=== PATIENT | male | born 1940 | race Caucasian/White ===

== ENCOUNTER 2016-10-15 14:28 | Emergency (ER) | payer MEDICARE ==
[2016-10-15 15:32] VITALS: BP 140/71
[2016-10-15] MEDS ORDERED: Amoxicillin PO (*) 500 MG CAP PO ONE ×3 (17:40)
--- NOTE | 2016-10-15 17:40 | UC ---
[facility] HPI - HPI Summary HPI Summary: Day 2 of worsening left upper dental pain, some swelling - History of Current Complaint Chief Complaint: UCDentalProblem Stated Complaint: TOOTH PAIN Time Seen by Provider: 10/15/16 17:35 Hx Obtained From: Patient Onset/Duration: Sudden Onset, Lasting Days - 2, Still Present Severity: Moderate Related History: Previous Dental Care on Same Tooth - teeth are capped - Allergies/Home Medications Allergies/Adverse Reactions: Allergies Allergy/AdvReac Type Severity Reaction Status Date / Time No Known Allergies Allergy Verified 10/15/16 15:32 PMH/Surg Hx/FS Hx/Imm Hx Previously Healthy: No Endocrine History Of: Denies: Diabetes Cardiovascular History Of: Reports: Cardiac Disorders Denies: Hypertension, Congestive Heart Failure - Surgical History Surgical History: Yes Surgery Procedure, Year, and Place: CATARACT REMOVAL BILATERAL EYES - [facility] - Family History Known Family History: Positive: None Family History: no reported cardiovascular issues in family lineage - Social History Occupation: Retired Lives: With Family Alcohol Use: Occasionally Substance Use Type: None Smoking Status (MU): Never Smoked Tobacco Review of Systems Constitutional: Negative Skin: Negative Eyes: Negative ENT: Dental Pain Respiratory: Negative Cardiovascular: Negative Gastrointestinal: Negative Genitourinary: Negative Motor: Negative Neurovascular: Negative Musculoskeletal: Negative Neurological: Negative Psychological: Negative All Other Systems Reviewed And Are Negative: Yes Physical Exam Triage Information Reviewed: Yes Appearance: Well-Appearing, No Pain Distress, Well-Nourished Vital Signs: Initial Vital Signs Temp 97.6 F 10/15/16 15:26 Pulse 56 10/15/16 15:26 Resp 16 10/15/16 15:26 BP 140/71 10/15/16 15:26 Pulse Ox 99 10/15/16 15:26 Vital Signs Reviewed: Yes Eye Exam: Normal Eyes: Positive: Conjunctiva Clear ENT Exam: Normal ENT: Positive: Normal ENT inspection, Hearing grossly normal, Pharynx normal, TMs normal. Negative: Nasal congestion, Nasal drainage, Tonsillar swelling, Tonsillar exudate, Trismus, Muffled/hoarse voice Dental: Positive: Percussion Tenderness @ - unsure which tooth hurts exactly on left upper side-some swelling observed in cheek Neck exam: Normal Neck: Positive: Supple, Nontender, No Lymphadenopathy Respiratory Exam: Normal Respiratory: Positive: No respiratory distress, No accessory muscle use Cardiovascular Exam: Normal Cardiovascular: Positive: RRR, Brisk Capillary Refill Musculoskeletal Exam: Normal Musculoskeletal: Positive: Strength Intact, ROM Intact, No Edema Neurological Exam: Normal Neurological: Positive: Alert, Muscle Tone Normal Psychological Exam: Normal Psychological: Positive: Normal Response To Family Skin Exam: Normal Dental Complaint Course/Dx - Course Course Of Treatment: Amoxicillin, ibuprofen, follow with dentist on Sunday as planned - Differential Dx/Diagnosis Differential Diagnosis/Dx: Fractured Tooth, Odontogenic Pain, Peridontic Disease , Peritonsillar Abcess Provider Diagnoses: dental abscess Discharge - Discharge Plan Condition: Stable Disposition: HOME Prescriptions: Amoxicillin CAP* 500 mg PO TID #28 cap HYDROcodone/ACETAMIN 5-325 MG* [[place] 5-325 TAB*] 1 tab PO Q6H PRN #10 tab MDD 4 PRN Reason: pain Patient Education Materials: Toothache (ED) Referrals: Kinsey Ren MD [Primary Care Provider] - Additional Instructions: It is ok to take 3 of the 200mg Ibuprofen every 6 hours as needed for pain---be sure to take with a small amount of food to prevent stomach upset- Follow with dentist tomorrow-
[2016-10-15] MEDS ORDERED: HYDROcodone/ACETAMIN 5-325 MG* 1 TAB PO ONE (17:41)
== END 2016-10-15 17:47 | disposition home or self-care (01) ==
LOC: UCEAST 14:28
DX: K04.7 Periapical abscess without sinus (principal)
CPT/HCPCS: 99213; A9270-GY; G0463

== ENCOUNTER → 2017-11-27 10:17 | Day surgery (SDC) | payer MEDICARE ==
[~2017-11-27 10:17] MED LIST: Diazepam TAB(*) 5 MG ONE; Heparin 2 UNITS/ML IVPREMIX* 2,000 ML IV ONE; Heparin(*) 1000 UNIT/ML 10 ML VIAL CATH LAB IV ONE; Iohexol 350 (CONTRAST) 200 ML MDV IV ONE; Lidocaine 1% INJ* 10 MG/ML 30 ML SDV ONE; Midazolam* 1 MG/ML 10 ML VIAL (10 MG) ONE; NS 0.9% 1000 ML* 1,000 ML IV SCH; VERAPAMIL 2.5 MG/ML 2 ML VIAL ** 5 mg/2 ml ONE; diPHENhydraMINE PO* 25 MG ONE; fentaNYL* 50 MCG/ML 2 ML VIAL (100 MCG VIAL) ONE; nitroGLYCERIN DRIP* 25,000 MCG/250 ML BTL ONE
--- NOTE | 2017-11-28 01:34 | CATH ---
CC: Soo Toribio MD; Kinsey Ren MD; Dr. Don Felix * CARDIAC CATHETERIZATION REPORT: DATE OF PROCEDURE: 11/27/17 - [facility] CATH INDICATION FOR THE PROCEDURE: The patient with ventricular tachycardia, on implantable loop recorder, assessed for the presence of coronary artery disease with abnormal EKG changes with exercise stress echo, but normal wall motion. PROCEDURES: Coronary arteriography, left heart catheterization, left ventriculography. PROCEDURE IN DETAIL: The patient was interviewed and examined in the holding area where the risks and benefits were explained. His radial artery was assessed in the holding area under ultrasound guidance and found to be acceptable for an approach. As such, this was determined to be the approach. The patient was brought to the cardiovascular laboratory and prepped and draped in sterile fashion and a formal time-out was performed. The right radial artery area was anesthetized with 1% lidocaine. The right radial artery was cannulated and a 6-Brazilian Glidesheath was placed. Coronary arteriography was performed utilizing a 5-Brazilian 4 curve TIG diagnostic catheter. Left heart catheterization and left ventriculography was performed using a 5-Brazilian PIG Performa radial catheter. Of note, an exchange length Johns guidewire was utilized for all exchanges. Left ventriculography was performed utilizing a total of 24 cc of Omnipaque dye at a rate of 12 cc per second. At the end of the case, the catheter and sheath were removed and hemostasis was obtained with a VascBand. The reverse Barbeau sign was a B at the end of the case. The total contrast used for the case was 70 cc of Omnipaque dye. The radiation exposure included 5.7 minutes of fluoro time. The air kerma radiation was 374 milligray. The DAP radiation was 2312 microgray per meter square. RESULTS: LABORATORY TESTS: Pre-cardiac catheterization laboratory results revealed hemoglobin and hematocrit of 13.8 and 41 with a platelet count of 157,000; BUN and creatinine were 24 and 1.0. INR was 0.86. Sodium was 140, potassium 4.3, chloride 105, bicarb 28. LEFT HEART CATHETERIZATION: Central aortic pressure was recorded at 149/67 with a mean of 100. Left ventricular pressure 148 over left ventricular end diastolic pressure of 14. LEFT VENTRICULOGRAPHY: Performed in the ANTUNEZ projection revealed symmetrical contraction of left ventricle. Of note, bigeminal rhythm was noted. Overall ejection fraction appeared to be approximately 60%. Of note, some of these were post PVC beats. No focal wall motion abnormalities were noted. No significant mitral regurgitation was seen. CORONARY ARTERIOGRAPHY: A. Left coronary artery: 1. Left main - widely patent. 2. Left anterior descending artery. There was calcium seen in the proximal portion of the left anterior descending artery with mild 25% to 30% narrowing at most. The mid segment of the LAD had a 40% narrowing. The LAD supplied a high, small caliber first diagonal branch which had a 25% to 30% proximal narrowing. Following this was a septal electronics technician apprentice followed by a bifurcating mid diagonal branch. The LAD continued onto the apical region and minimally onto the distal inferior wall. 3. Circumflex artery - a dominant vessel supplying a very thin first obtuse marginal branch and a somewhat slightly larger second obtuse marginal branch. The artery continued supplying a moderate sized low-lying obtuse marginal branch and eventually a right ventricular branch and a bifurcating posterior descending artery. There was an area of mild narrowing of 30% to 35% in the distal portion of the vessel prior to the bifurcating posterior descending artery. B. Right coronary artery - a nondominant vessel supplying 2 right ventricular branches, somewhat smaller in caliber, but no significant stenosis was seen. OVERALL ASSESSMENT: Normal LV function with [id number] coronary artery disease as discussed. No lesion of hemodynamic significance was noted. The patient will follow up with me with a wound check in 1 week from now and will follow up with Dr. Toribio following that for ongoing management in addition to Dr. Felix, stopperer assembler from [facility]. [id number]/[facility] #: [id number] CHANCE
--- NOTE | 2017-11-28 11:28 | LTR ---
CC: Dr. Kinsey Ren; Dr. Don Felix * DATE: 11/28/17 - [facility] CATH TO: Dr. Soo Toribio RE: Leonel Morocho : 38 Dear Soo: This is a letter just to review with you Leonel's recent outpatient cardiac catheterization that you had asked me to perform in light of his ventricular tachycardia. As you remember from my text to you, he had mild disease within his proximal LAD with calcium with moderate disease in the mid LAD. His overall LV function was normal as was his left ventricular end diastolic pressure. He had no other significant disease in his other arteries. His circumflex was a left dominant system with a 30% to 35% distal lesion prior to the posterior descending artery. Please feel free to utilize this information in his ongoing cardiac care. Sincerely, [id number]/[facility] #: [id number] MTDVamshi
== END | disposition home or self-care (01) ==
LOC: CHICATH 10:17
PROVIDERS: ATTEND Internal Medicine Cardiovascular Disease
DX: I47.2 Ventricular tachycardia (principal); I25.10 Atherosclerotic heart disease of native coronary artery without angina pectoris; I49.3 Ventricular premature depolarization; R94.39 Abnormal result of other cardiovascular function study; G90.4 Autonomic dysreflexia; Z95.5 Presence of coronary angioplasty implant and graft; G47.33 Obstructive sleep apnea (adult) (pediatric); R55 Syncope and collapse; I35.8 Other nonrheumatic aortic valve disorders; E78.2 Mixed hyperlipidemia; R42 Dizziness and giddiness
CPT/HCPCS: 93458; A9270-GY; J1644; J2250; J3010

== ENCOUNTER 2018-09-02 02:05 | Observation (INO) | payer MEDICARE ==
--- NOTE | 2018-09-02 02:23 | ED ---
HPI Chest Pain - HPI Summary HPI Summary: This patient is a 78 year old M presenting to [facility] accompanied by with a chief complaint of mid-sternal CP that began at 2200 yesterday. The patient rates the pain 4/10 in severity. Symptoms aggravated by deep breaths. Symptoms alleviated by nothing. Patient denies cough. - History of Current Complaint Chief Complaint: EDChestPainROMI Time Seen by Provider: 09/02/18 02:10 Hx Obtained From: Patient Onset/Duration: Started Hours Ago, Atraumatic, Still Present Timing: Constant Initial Severity: Moderate Current Severity: Moderate Pain Intensity: 4 Pain Scale Used: 0-10 Numeric Chest Pain Location: Mid Sternal Chest Pain Radiates: No Aggravating Factor(s): Deep Breaths Alleviating Factor(s): Nothing Associated Signs and Symptoms: Negative: Cough - Allergy/Home Medications Allergies/Adverse Reactions: Allergies Allergy/AdvReac Type Severity Reaction Status Date / Time No Known Allergies Allergy Verified 09/02/18 02:11 PMH/Surg Hx/FS Hx/Imm Hx Previously Healthy: No Endocrine/Hematology History: Denies: Hx Diabetes, Hx Sickle Cell Disease Cardiovascular History: Reports: Hx Hypercholesterolemia, Other Cardiovascular Problems/Disorders - PT REPORTS "HEART OFTEN SKIPS BEATS" Denies: Hx Congestive Heart Failure, Hx Hypertension GI History: Denies: Other GI Disorders History: Denies: Other Problems/Disorders Musculoskeletal History: Denies: Other Musculoskeletal History Sensory History: Reports: Hx Cataracts - BILATERAL EYES REMOVED, Hx Contacts or Glasses - GLASSES Denies: Hx Hearing Aid Opthamlomology History: Reports: Hx Cataracts - BILATERAL EYES REMOVED, Hx Contacts or Glasses - GLASSES Neurological History: Denies: Other Neuro Impairments/Disorders - Surgical History Surgery Procedure, Year, and Place: CATARACT REMOVAL BILATERAL EYES - [facility] Hx Anesthesia Reactions: No Infectious Disease History: No Infectious Disease History: Denies: Traveled Outside the [place] in Last 30 Days - Family History Known Family History: Positive: Other Family History: no reported cardiovascular issues in family lineage - Social History Occupation: Retired Lives: With Family Alcohol Use: None Substance Use Type: Reports: None Smoking Status (MU): Never Smoked Tobacco Review of Systems Positive: Chest Pain Negative: Cough All Other Systems Reviewed And Are Negative: Yes Physical Exam - Summary Physical Exam Summary: VITAL SIGNS: Reviewed. GENERAL: Patient is a well-developed and nourished male who is lying comfortable in the stretcher. Patient is not in any acute respiratory distress. HEAD AND FACE: No signs of trauma. No ecchymosis, hematomas or skull depressions. No sinus tenderness. EYES: PERRLA, EOMI x 2, No injected conjunctiva, no nystagmus. EARS: Hearing grossly intact. Ear canals and tympanic membranes are within normal limits. MOUTH: Oropharynx within normal limits. NECK: Supple, trachea is midline, no adenopathy, no JVD, no carotid bruit, no c- spine tenderness, neck with full ROM. CHEST: Symmetric, no tenderness at palpation LUNGS: Clear to auscultation bilaterally. No wheezing or crackles. CVS: Regular rate and rhythm, S1 and S2 present, no murmurs or gallops appreciated. ABDOMEN: Soft, non-tender. No signs of distention. No rebound no guarding, and no masses palpated. Bowel sounds are normal. EXTREMITIES: FROM in all major joints, no edema, no cyanosis or clubbing. NEURO: Alert and oriented x 3. No acute neurological deficits. Speech is normal and follows commands. SKIN: Dry and warm Triage Information Reviewed: Yes Vital Signs On Initial Exam: Initial Vitals Temp Pulse Resp BP Pulse Ox 97.4 F 80 18 186/90 94 09/02/18 02:08 09/02/18 02:08 09/02/18 02:08 09/02/18 02:08 09/02/18 02:08 Vital Signs Reviewed: Yes Diagnostics - Vital Signs Vital Signs Temp Pulse Resp BP Pulse Ox 09/02/18 02:14 80 17 97 09/02/18 02:13 83 17 178/98 96 09/02/18 02:08 97.4 F 80 18 186/90 94 - Laboratory Result Diagrams: 09/02/18 02:36 09/02/18 02:36 Lab Statement: Any lab studies that have been ordered have been reviewed, and results considered in the medical decision making process. - Radiology Chest XR Radiology Interpretation Completed By: ED Physician Summary of Radiographic Findings: CXR reveals, per ED physician, no acute process. - EKG 0213 Cardiac Rate: NL EKG Rhythm: Sinus Rhythm - 80 BPM Summary of EKG Findings: An EKG taken at 0213 reveals nml sinus rhythm at 80 BPM with LVH. Chest Pain Course/Dx - Course Course Of Treatment: This patient is a 78 year old M presenting to [facility] accompanied by with a chief complaint of mid-sternal CP that began at 2200 yesterday. Physical Exam Findings: Nml. An EKG taken at 0213 reveals nml sinus rhythm at 80 BPM with LVH. CXR reveals, per ED physician, no acute process. Bloodwork obtained. In the ED course the patient was given morphine and Zofran. Consult with Dr. Tierney (hospitalist) at 0330. She agrees to admit the patient for further evaluation. The patient is agreeable with this plan. - Diagnoses Provider Diagnoses: Chest pain - Provider Notifications Discussed Care Of Patient With: Bety Tierney Time Discussed With Above Provider: 03:30 Instructed by Provider To: Other - Consult with Dr. Tierney (hospitalist) at 0330. She agrees to admit the patient for further evaluation. Discharge - Sign-Out/Discharge Documenting (check all that apply): Patient Departure - Admit to [facility] - Discharge Plan Condition: Stable Disposition: ADMITTED TO [facility] Referrals: Kinsey Ren MD [Primary Care Provider] - - Attestation Statements Document Initiated by Scribe: Yes Documenting Scribe: Paula Goddard Provider For Whom Scribe is Documenting (Include Credential): Dr. Yee Ceron MD Scribe Attestation: Paula Chris scribed for Dr. Yee Ceron MD on 09/02/18 at 0333. Status of Scribe Document: Ready
[2018-09-02] MEDS ORDERED: Ondansetron INJ* 2 MG/ML VIAL IV ONE (02:27)
[2018-09-02] MEDS ORDERED: Morphine VIAL* 4 MG/ML VIAL (1 ml vial) IV ONE (02:27)
[2018-09-02 02:44] LABS: ABS Basophils 0 10^3/ul (0-0.2); ABS Eosinophils 0 10^3/ul (0-0.6); ABS Monocytes 1.1 10^3/ul (0-0.8); ABS Nucleated RBC 0 10^3/ul; Eosinophil % 0.3 %; Hematocrit 44 % (42-52); Hemoglobin 14.8 g/dl (14.0-18.0); Lymphocyte % 10.7 %; Mean Corpuscular HGB Conc 33 g/dl (31-36); Mean Corpuscular Hemoglobin 32 pg (27-31); Mean Corpuscular Volume 96 fL (80-94); Mean Platelet Volume 8.4 fL (7.4-10.4); Nucleated Red Blood Cells % 0; Platelet Count 163 10^3/ul (150-450); Red Blood Count 4.62 10^6/ul (4.00-5.40); Red Cell Distribution Width 13 % (10.5-15); White Blood Count 9.2 10^3/ul (3.5-10.8)
[2018-09-02 03:00] LABS: Albumin 3.9 g/dL (3.2-5.2); Albumin/Globulin Ratio 1.5 (1-3); BUN/Creatinine Ratio 17.1 (8-20); Calcium 9.1 mg/dL (8.6-10.3); EGFR Non-African American 48.9 (>60); Globulin 2.6 g/dL (2-4); Magnesium 1.7 mg/dL (1.9-2.7); Potassium 3.9 mmol/L (3.5-5.0); Total Bilirubin 1.3 mg/dL (0.2-1.0); Total Protein 6.5 g/dL (6.4-8.9)
[2018-09-02 03:08] LABS: Activated Partial Thrombo Time 26.3 seconds (26.0-36.3); INR 0.91 (0.77-1.02)
[2018-09-02] MEDS ORDERED: Albuterol/Ipratropium NEB.SOL* Albuterol 2.5 MG/Ipratropium 0.5 MG 3 ML INH PRN (04:33)
[2018-09-02] MEDS ORDERED: Al Hydrox/Mg Hydrox/Simet LIQ* 30 ML UDC PO PRN (04:33)
[2018-09-02] MEDS: Enoxaparin(*) 40 MG/0.4 ML SYR SUBCUT SCH (06:33)
--- NOTE | 2018-09-02 07:21 | HP ---
CC: Dr. Ren; Dr. Toribio HISTORY AND PHYSICAL: DATE OF ADMISSION: 09/02/18 TIME OF ADMISSION: 4:30 a.m. PRIMARY CARE PHYSICIAN: Dr. Ren. DRY ROASTER: Dr. Toribio. CHIEF COMPLAINT: Chest pain. HISTORY OF PRESENT ILLNESS: This is a 78-year-old man with history of nonsustained V-TACH and nonobs tructive coronary artery disease who presents to the emergency department with chest pain that began this evening. It woke him from sleep. He had an uneventful night prior to this and went to bed arou nd 10 p.m. He then awoke suddenly with chest pain that he localizes to the middle of his chest and i t worsened with deep inspiration. He got up and walked around. The pain was unchanged with exertion and unchanged with rest. The pain was unchanged with position and there was nothing he could do to relieve it. He and his do sight recent increased indigestion, and they thought it could be jun gestion, but also were concerned about heart attack, so they came to the emergency department. In e ED, the pain persists with deep inspiration but is better than it had been. It has not yet gone aw ay. He denies any recent illness. Denies any fevers and he has never had chest pain like this befor e. PAST MEDICAL HISTORY: 1. Obstructive sleep apnea, on CPAP. 2. BPH. 3. Nonsustained V-TACH. 4. Nonobstructive coronary artery disease from cardiac catheterization in November of 2017. SOCIAL HISTORY: He lives at home with his who is here with him today. He does not smoke. He d oes not drink. He does not use any illicit drugs. His emergency contact is his , Sabiha. REVIEW OF SYSTEMS: As per the HPI. Remainder of 14-point review of systems is negative. He denies orthopnea, weight gain, palpitations, or shortness of breath. PHYSICAL EXAMINATION GENERAL: Alert, well appearing man, who appears younger than his stated age. VITAL SIGNS: Temperature 97.4, heart rate 76, respiratory rate 16, pulse ox 97% on room air, blood p ressure 146/75. HEENT: Pupils equal, round, reactive to light. Oral mucosa is moist. NECK: No JVP. No adenopathy. LUNGS: Clear bilaterally. A loop recorder is palpable inferior to the left nipple. CHEST: Regular rate and rhythm. No rubs or murmurs. ABDOMEN: Soft, nontender, nondistended. No guarding or rebound. No CVA tenderness. EXTREMITIES: No edema, rashes, or ulcers. DIAGNOSTIC STUDIES/LAB DATA: Labs: Sodium 140, potassium 3.9, chloride 106, creatinine 1.4, glucos e 108. Total bilirubin 1.3. Alk phos 34. Troponin 0.01. INR 0.91. D-dimer less than 200. White b lood cells 9.2, hemoglobin 14.8, platelets 163. Imaging: Chest x-ray shows normal aeration, no infiltrates or effusion and a normal sized heart. EK G shows normal sinus rhythm, normal axis, normal intervals, LVH, T-wave inversions in lead III, no ot her ST changes. ASSESSMENT AND PLAN: This is a 78-year-old male with history of nonobstructive coronary artery disea se who presents to the emergency department with pleuritic chest pain. 1. Chest pain. I am ruling out acute coronary syndrome with serial troponins. I will monitor him o n telemetry. His initial troponin is negative. His EKG does have T-wave inversions isolated to lead III, but there is no EKG for comparison. I think given his known coronary artery disease that was n onobstructive in November 2017, it would be reasonable to get a stress exercise test this afternoon if h is troponins continue to be negative to see if any of those nonobstructive lesions have progressed to become significant, which would become evident on a stress test. He is able to exercise and walk 3 m lawrence a day, so I am using an exercise stress test. Certainly, given his history of worsening indiges tion, it is possible that this is a GI source of chest discomfort, but we will rule out a cardiac amina rce first. 2. Acute kidney injury. He does not describe anything that makes me think he is prerenal, but we wi ll do a trial of IV fluids and recheck it in the morning. 3. Nonsustained ventricular tachycardia. The etiology of this has not been clear according to the p leonard and his . I am continuing his home dose of metoprolol. 4. Obstructive sleep apnea. Continue nocturnal CPAP. 5. DVT prophylaxis. Lovenox. 6. Diet. N.p.o. for a stress test. [id number]/[facility] #: [id number]
[2018-09-02] MEDS ORDERED: traZODone TAB* 50 MG TAB PO SCH ×2 (09:00→21:00)
[2018-09-02] MEDS ORDERED: Metoprolol Succinate XL TAB* 25 MG PO SCH (09:00)
[2018-09-02] MEDS: NS 0.9% 1000 ML* 1,000 ML IV SCH ×2 (10:00→18:17)
[2018-09-02] MEDS: Aspirin EC TAB* 81 MG TAB.EC PO SCH (10:06)
[2018-09-02] MEDS ORDERED: Heparin(*) 1000 UNIT/ML 10 ML VIAL CATH LAB IV ONE (10:14)
[2018-09-02] MEDS ORDERED: Heparin 2 UNITS/ML IVPREMIX* 0 ML IV ONE (10:14)
[2018-09-02] MEDS ORDERED: VERAPAMIL 2.5 MG/ML 2 ML VIAL ** 5 mg/2 ml ONE (10:14)
[2018-09-02] MEDS ORDERED: Lidocaine 1% INJ* 10 MG/ML 30 ML SDV ONE (10:14)
[2018-09-02] MEDS ORDERED: nitroGLYCERIN DRIP* 0 MCG/0 ML BTL ONE (10:14)
[2018-09-02] MEDS ORDERED: Iodixanol 320 (CONTRAST) 100 ML SDV ONE (10:15)
[2018-09-02 10:39] LABS: ABS Basophils 0 10^3/ul (0-0.2); ABS Eosinophils 0 10^3/ul (0-0.6); ABS Lymphocytes 1.3 10^3/ul (1.0-4.8); ABS Monocytes 1.5 10^3/ul (0-0.8); ABS Nucleated RBC 0 10^3/ul; Eosinophil % 0.1 %; Hematocrit 47 % (42-52); Hemoglobin 15.8 g/dl (14.0-18.0); Lymphocyte % 12.9 %; Mean Corpuscular HGB Conc 34 g/dl (31-36); Mean Corpuscular Hemoglobin 32 pg (27-31); Mean Corpuscular Volume 96 fL (80-94); Mean Platelet Volume 8.4 fL (7.4-10.4); Nucleated Red Blood Cells % 0; Platelet Count 186 10^3/ul (150-450); Red Blood Count 4.93 10^6/ul (4.00-5.40); Red Cell Distribution Width 13 % (10.5-15); White Blood Count 9.9 10^3/ul (3.5-10.8)
--- NOTE | 2018-09-02 10:44 | PN ---
Subjective Date of Service: 09/02/18 Interval History: HD #1 78 yo M with hx of NSVT with loop recorder and non obstructive CAD seen on 2017 cath, BPH, ROBSON on CPAP who presented last night for CP on inspiration scheduled for stress test. Overnight VSS, tele showed occasional VPC, otherwise no acute events until this morning. Acute event: This morning while seeing the patient, he was standing with his and reported he felt dizzy and "unwell" as we were talking, he sat and began slurring his speech slightly, was confused, then after about 10 seconds became non responsive, with a pulse, he was transferred to bed, a CAT call was announced, and after about 45 seconds he came to and answered questions appropriately AOx3, VSS showing BP 130/80, HR sinus in the 70s, with a normal neuro exam CN 2-12 intact and all motor and sensation intact with only mild L facial droop that per family unsure was new. EKG was done which showed concave upward ST segment II, III, avf, slight in V5, V6 that were changed from prior admission EKG. STEMI was called and bedside echo showed no RWMA, formal was ordered and cardiology was consulted. Pt remains with mild CP, worse on inspiration though vague about his sx at rest , does report that his CP has not sig changed since 10PM last night. He otherwise has no acute complaints or confusion Data Trop neg x 3 at that point with last Tropnin drawn at 8 AM, labs unremarkable with expcetion of Cr 1.4 Objective Active Medications: Al Hydrox/Mg Hydrox/Simethicone (Maalox Plus*) 30 ml PO Q6H PRN PRN Reason: INDIGESTION Albuterol/Ipratropium (Duoneb (Albuterol 2.5 Mg/Ipratropium 0.5 Mg)) 1 neb INH [id number] AWAKE PRN PRN Reason: sob/wheexing Aspirin (Aspirin Ec Tab*) 81 mg PO DAILY [facility] Last Admin: 09/02/18 10:06 Dose: 81 mg Atorvastatin Calcium (Lipitor*) 10 mg PO DAILY [facility] Enoxaparin Sodium (Lovenox(*)) 40 mg SUBCUT Q24H [facility] Last Admin: 09/02/18 06:33 Dose: 40 mg Sodium Chloride (Ns 0.9% 1000 Ml*) 1,000 mls @ 175 mls/hr IV PER RATE [facility] Metoprolol Succinate (Toprol Xl Tab*) 25 mg PO DAILY [facility] Trazodone HCl (Desyrel Tab*) 50 mg PO DAILY [facility] Vital Signs - 8 hr 09/02/18 09/02/18 09/02/18 02:43 03:00 03:14 Temperature Pulse Rate 75 72 Respiratory 18 19 16 Rate Blood Pressure 128/76 (mmHg) O2 Sat by Pulse 94 93 Oximetry 09/02/18 09/02/18 09/02/18 03:43 04:00 04:13 Temperature Pulse Rate 69 69 76 Respiratory 16 19 16 Rate Blood Pressure 135/75 146/75 (mmHg) O2 Sat by Pulse 95 95 97 Oximetry 09/02/18 09/02/18 09/02/18 04:43 05:00 05:13 Temperature Pulse Rate 71 73 70 Respiratory 17 14 17 Rate Blood Pressure 135/75 116/70 (mmHg) O2 Sat by Pulse 96 95 95 Oximetry 09/02/18 09/02/18 09/02/18 05:43 06:00 06:23 Temperature 98.6 F 98.7 F Pulse Rate 68 69 70 Respiratory 17 13 19 Rate Blood Pressure 114/68 140/76 129/64 (mmHg) O2 Sat by Pulse 94 97 97 Oximetry 09/02/18 09/02/18 07:28 08:00 Temperature 99.0 F Pulse Rate 68 Respiratory 16 20 Rate Blood Pressure 136/67 (mmHg) O2 Sat by Pulse 99 Oximetry Oxygen Devices in Use Now: None Appearance: Pt is examined after acute event Eyes: No Scleral Icterus, PERRLA Ears/Nose/Mouth/Throat: NL Teeth, Lips, Gums Neck: NL Appearance and Movements; NL JVP Respiratory: Symmetrical Chest Expansion and Respiratory Effort, Clear to Auscultation Cardiovascular: NL Sounds; No Murmurs; No JVD Abdominal: NL Sounds; No Tenderness; No Distention Lymphatic: No Cervical Adenopathy Extremities: No Edema Skin: No Rash or Ulcers Neurological: Alert and Oriented x 3, NL Sensation, NL Muscle Strength and Tone , - - CN 2-12 intact with exception of L facial mild droop in LLQ Result Diagrams: 09/02/18 10:13 09/02/18 10:13 EKG Data: As per HPI new EKG with II, III, avf, v5,v6 changes Assess/Plan/Problems-Billing Assessment: 78 yo M with NSVT s/p loop, non obstructive CAD in 11/2017, BPH, ROBSON on CPAP who is presenting for atypical CP, hospital stay c/b syncopal event on 09/02 AM, - Patient Problems (1) Chest pain Current Visit: Yes Status: Acute Code(s): R07.9 - CHEST PAIN, UNSPECIFIED SNOMED Code(s): 73423589 Comment: R/o CAD given new EKG findings on AM event, ddx pericarditis, pleurisy, GERD, MSK or other -Echo -Trend trops x3 again 09/02, CK, CKMB -ESR -Repeat CXR with lateral -Cardiology consulted during event -At this time will keep pt on tele (2) Syncope Current Visit: Yes Status: Acute Code(s): R55 - SYNCOPE AND COLLAPSE SNOMED Code(s): 549218128 Comment: Acute syncopal event on the floor. Tele reviewed without any sig rythym changes aside from mild samantha to sinus in 60's. Ddx; vasovagal, cardiac ( less likely without arrythmia changes, but did have EKG changes), and neurological given ? of new L facial droop though neuro exam recovering after event -Stat head CT -Neuro checks q 2 -Consider neuro consult if changes persist -Last dose of Asa this morning (3) MIGUEL (acute kidney injury) Current Visit: Yes Status: Acute Code(s): N17.9 - ACUTE KIDNEY FAILURE, UNSPECIFIED SNOMED Code(s): 67192196 Comment: Cr elevated to 1.4 baseline normal -Likely prerenal, has been on NS continuous IVF, continue for now until pt resumes PO intake (4) ROBSON (obstructive sleep apnea) Current Visit: Yes Status: Acute Code(s): G47.33 - OBSTRUCTIVE SLEEP APNEA ( ADULT) (PEDIATRIC) SNOMED Code(s): 77767500 Comment: Continue home CPAP (5) NSVT (nonsustained ventricular tachycardia) Current Visit: Yes Status: Acute Code(s): I47.2 - VENTRICULAR TACHYCARDIA SNOMED Code(s): 458182660 Comment: Chronic problem seen by outpt cardiology, continue outpt Metoprolol at this time (6) DVT prophylaxis Current Visit: Yes Status: Acute Code(s): HVE5505 - SNOMED Code(s): 215171410 Comment: Continue Lovenox Status and Disposition: Remains on floor
[2018-09-02 10:56] LABS: Albumin 4.2 g/dL (3.2-5.2); Albumin/Globulin Ratio 1.5 (1-3); BUN/Creatinine Ratio 16.8 (8-20); C Reactive Protein 17.46 mg/L (<8.01); Calcium 9.4 mg/dL (8.6-10.3); EGFR Non-African American 55.7 (>60); Globulin 2.8 g/dL (2-4)
[2018-09-02 13:27] LABS: Erythrocyte Sed Rate 26 mm/Hr (0-40)
[2018-09-02] MEDS ORDERED: Iodixanol* (CONTRAST) 320 MG/ML 100 ML SDV IV ONE (14:14)
--- NOTE | 2018-09-02 15:45 | CONS ---
CC: Dr. Soo Toribio; Dr. Jarvis * CARDIOLOGY CONSULTATION: DATE OF CONSULT: 09/02/18 INDICATION FOR CONSULTATION: Syncope, abnormal EKG. HISTORY OF PRESENT ILLNESS: The patient is a 78-year-old gentleman with a history of syncopal episodes, has been followed closely by Dr. Toribio. The patient had a cardiac catheter in November 2017, which showed only mild-to- moderate disease, no critical coronary artery disease. The patient had an event monitor implanted in December 2017. The patient was admitted to the hospital yesterday because of chest pain he described as in the center of his chest, it was an aching feeling in his chest, it did not radiate anywhere. He denied any diaphoresis or shortness of breath associated with it. The patient was scheduled for a stress test today. The patient was being interviewed by Dr. Jarvis when he became unresponsive. Monitor at that time showed no significant bradycardia, his heart rate went down down to the lowest was 60 beats per minute. The patient quickly regained consciousness without any postictal symptoms. An EKG after his syncopal episode showed ST segment elevations in diffuse leads. No evidence of reciprocal changes. He did have LA depression. A STEMI alert was called on arrival. The patient was awake and alert. He was complaining of mild chest pain. A stat echocardiogram showed normal LV size and systolic function. No focal wall motion abnormalities and no significant valvular abnormalities. His pericardium appeared to be normal. PAST MEDICAL HISTORY: Significant for obstructive sleep apnea with CPAP, prostatic hypertrophy, nonsustained ventricular tachycardia. PAST SURGICAL HISTORY: Cardiac catheterization in 2018. OUTPATIENT MEDICATIONS: 1. Aspirin 81 mg a day. 2. Trazodone 50 mg at bedtime. 3. Simvastatin 20 mg a day. 4. Metoprolol succinate 25 mg a day. 5. Calciferol as directed. ALLERGIES: No known drug allergies. SOCIAL HISTORY: He is . He is currently retired. He denies significant alcohol. He denies any tobacco use. REVIEW OF SYSTEMS: Negative for fevers and chills. Negative for changes in bowel or bladder habits. Negative for change in weight. Other 12-point review is unremarkable except for the chest pain. PHYSICAL EXAM: Height is 5 feet 7 inches, weight is 167 pounds. Temperature 98.2, heart rate is 73, blood pressure 123/66, respiratory rate is 18, oxygen saturation 100% on 2 L. Sclerae anicteric. Oropharynx is pink, without erythema. Carotids are 2+, without bruits. JVD is normal. Thyroid is normal. Cardiac Exam: S1, S2, without any murmurs, rubs, or gallops. Lungs are clear to auscultation bilaterally. There is no dullness to percussion. Abdomen is soft, nontender, nondistended, with normoactive bowel sounds. Extremities show no edema. He has 2+ pulses throughout. The patient is awake, alert, and oriented. He moves all 4 extremities equally. Of note, when he had his episode, the patient did have some degree of facial asymmetry. The patient had just gotten back from a CAT scan just now. The results are not known at this time. DIAGNOSTIC STUDIES/LAB DATA: CBC within normal limits. Chemistries within normal limits. BUN 21, creatinine 1.2. Troponins are negative x3. IMPRESSION: This 78-year-old gentleman with a history of syncope, who was admitted to the hospital with chest pain. The patient's EKG from yesterday to today showed ST-segment elevation and LA depression consistent with pericarditis. The patient clearly had no focal wall motion abnormalities on his echocardiogram. I do not think this is an acute coronary syndrome. For now, the recommendation is to start colchicine as directed. The patient will follow up with Dr. Toribio as an outpatient. The patient will likely get a neurology consultation because of episodes of unresponsiveness with no rhythm disturbances. Case discussed with Dr. Jarvis. [id number]/[facility] #: [id number] [facility] CENTERVamshi
[2018-09-02] MEDS: Atorvastatin* 10 MG TAB PO SCH (17:20)
[2018-09-02] MEDS: Ibuprofen TAB* 600 MG PO SCH ×2 (17:20→20:41)
--- NOTE | 2018-09-02 17:52 | CONS ---
CC: Dr. Ren; Dr. Toribio CONSULTATION REPORT: DATE OF CONSULT: 09/02/18 ADMITTING PROVIDER: Dr. Bety Tierney. PRIMARY CARE PHYSICIAN: Dr. Ren. SEARCH ENGINE OPTIMIZATION ANALYST: Dr. Toribio. REASON FOR CONSULT: Loss of consciousness. HISTORY OF PRESENT ILLNESS: Mr. Morocho is a 78-year-old gentleman who has a history of nonobstructive coronary artery disease by cardiac catheterization in November 2017. He has a history of nonsustained V -Tach, BPH, and a obstructive sleep apnea and he wears a CPAP. He came to the ER with chest pain beg inning last evening. He notes that the chest pain was more pleuritic in nature, worse when he inspir ed and . He had no numbness or tingling in his left arm, he had no numbness, tingling, or melissa n into his jaw. He denies any shortness of breath, any nausea or vomiting. He notes that the pain w alfonso him from sleep, and when it did not improve, he came into the ER. He was admitted to the [facility] to rule out acute coronary syndrome with serial troponins. He did have some T-wave inversions in h is EKG, and given the fact that he has known coronary artery disease, it was felt prudent to rule him out. His troponins during this hospital admission had been negative. He typically is very active. He walks 3 miles a day and does not normally have anginal chest pain. He does follow with Dr. Hylton er as an outpatient. This morning, he was getting ready to have a stress echo and was standing at e bedside with Dr. Jarvis when he suddenly became ill. He states that he felt somewhat dizzy. His states he was pale, no reported diaphoresis, no vomiting, no nausea. He did have family at the [facility]. Dr. Jarvis was able to get him down into a chair and he subsequently lost consciousness. His wif e states that he leaned his head back in the chair, that his eyes went back, they were open, that his tongue and mouth was drooping on the left side. He was like that for approximately 45 seconds when he started to come around. After he came around, his speech was slurred for another 60 seconds or so and he slowly improved. There was no bladder or bowel incontinence, there was no tongue biting. Te lemetry was reviewed by Dr. Jarvis and the associate program manager. There was some mild bradycardia from the 70s to the 60s, but no other arrhythmias were noted. He has no seizure risk factors including no prior s eizures, no head trauma, no meningitis, no history of issues, no family history of seizure. He did have an event approximately 15 years ago when he was on a plane. He states it was very roselia lar to the event today. He was walking down the aisle when he suddenly lost consciousness. He was b rought back to the back of the plane and given oxygen, but since then, he has had no further events. Within 5 to 10 minutes, the patient was basically back to baseline. He was lying in his bed. He cu rrently denies any major symptoms except for the pleuritic chest pain when he breathes in and out. H e denies any vision loss, he denies any shortness of breath, dyspnea on exertion. He denies any naus ea or vomiting. No swelling in his lower extremities. He does have what appears to be a left lower facial droop, although his was able to pull up an old picture and it is very similar in nature, does not appear to be new. He denies any focal numbness, tingling, or weakness. Basically, he feels back to his baseline except for the chest pain. PAST MEDICAL HISTORY: As noted above. In addition, he has an implanted eye specialist to look for any evidence of atrial fibrillation. Hypertension and hypercholesterolemia, controlled. PAST SURGICAL HISTORY: His surgical history, he had a cardiac cath in November 2017, otherwise no surge gauri. MEDICATIONS: His medications at home include: 1. Calcium plus vitamin D. 2. Aspirin 81 mg a day. 3. Trazodone 50 mg daily. 4. Simvastatin 20 mg a day. 5. Metoprolol 25 mg p.o. daily. His current medications include: 1. Maalox p.r.n. 2. Albuterol p.r.n. 3. Aspirin 81 mg a day. 4. Lipitor 10 mg daily. 5. Colchicine 0.6 mg p.o. b.i.d. 6. Lovenox 40 mg subcutaneously q.24 hours. 7. Ibuprofen 600 mg p.o. q.6 hours. 8. Metoprolol 25 mg p.o. daily. 9. Trazodone 50 mg daily. ALLERGIES: No known drug allergies.. SOCIAL HISTORY: Lives with his . His family is at the bedside. He denies any tobacco use in th e past or currently. He occasionally has some alcohol, a glass of red wine with dinner. Does not us e any illicit substances. He previously worked in clerical work. He exercises regularly, walks 3 mi les a day. REVIEW OF SYSTEMS: Review of systems in 14-organ systems as noted above in the HPI, otherwise negati ve. PHYSICAL EXAM: Vital Signs: He is afebrile. Temp 98.2, pulse rate 68 to 67 to 73, respiratory rate 16 to 20, O2 sats 97% to 100% on room air, blood pressure 129/64 to 136/67 to 123/66. He has had no episodes of hypotension and in fact on admission had some hypertension, 186/90. In general, he is a well-nourished, well- developed gentleman, in no acute distress. He is lying in the hospital bed. He is pleasant, well dressed, well groomed. HEENT: He is normocephalic, atraumatic. Sclerae are ani cteric. Mucous membranes are moist. He has poor dentition. Neck is supple. No thyromegaly, no car otid bruits. Chest: Clear to auscultation bilaterally. Cardiovascular is regular rate and rhythm, without murmurs. Abdomen is nondistended. Extremities: No clubbing, cyanosis, or edema. Skin is w arm and dry, without lesions. On neurologic exam, he is awake, alert, and oriented x3. His speech is fluent. There is no dysarthria. Recall is intact. His mood is dysthymic, affect mood congruent. Cranial Nerves: Pupils are equal, round, and reactive to light. Extraocular muscles are intact, wit h no nystagmus or diplopia. Facial sensation is intact. He does have a mild flattening of his left n asolabial fold and a mild droop of his mouth which appears to be chronic. Hearing is intact bilatera lly. His palate raises symmetrically. Tongue is midline. Sternocleidomastoid and trapezius are 5/5. Motor Exam: He is 5/5 throughout with good tone and bulk. There is no drift in the upper or lower extremities. Sensation is grossly intact to light touch and pinprick in all 4 extremities. DTRs are down throughout, trace in the upper extremities, biceps, brachioradialis, trace at the patella and a nkles. [id number], rapid alternating movements were intact. There is no resting tremor, no inte ntion tremor, no ataxia. His gait was not tested at this time. DIAGNOSTIC STUDIES/LAB DATA: Includes a CBC with diff with an MCV of 96, MCH of 32, absolute monocyt es of 1.5, INR of 0.91, PTT of 26.3, D-dimer less than 200. Chemistries significant for a creatinine of 1.25, down from 1.40, glucose of 131, total bili of 2, up from 1.3 on admission. C-reactive prote in is 17.46. He has CK- MB of 1.5, troponins 0.01 x5. Imaging: He had an echocardiogram done 09/02/18. Normal left ventricular systolic function, estimat ed ejection fraction 55% to 60%, right ventricular chamber size and systolic function are within norm al limits. There is trace mild aortic regurg. There is mild mitral regurg. There is trace mild tric uspid regurg. No pulmonary hypertension is noted. There is no significant pericardial effusion. He had a CT of the head done immediately after his event, showed no acute abnormalities. Chest x-ray d one earlier this morning faint linear disease of the bilateral lung bases, morphologically most consi stent with atelectasis. Electrocardiogram: Normal sinus rhythm, ventricular rate of 60 to 99, abnor mal R-wave progression, early transition QRS area greater in 0 and V2, consider left ventricular hype rtrophy, STT abnormalities. ASSESSMENT AND PLAN: Mr. Morocho is a 78-year-old gentleman with a history of hypertension, well contr olled; hyperlipidemia, controlled on medication; non- obstructive coronary artery disease, who presen ts to the hospital with some chest pain, here for rule out. Chest pain appears to be more pleuritic in nature and not cardiac. He does have a history of nonsustained V-Tach, but his telemetry on this admission has been okay. He was getting ready to have a stress test this morning when he suddenly be came unresponsive. This lasted for approximately a minute and then he had some slurred speech with p ossible left lower facial droop lasting another minute or so. He subsequently returned to his baseli ne and has no focal findings other than the left lower facial droop, which appears to be chronic comp ared to an old picture. I was consulted for evaluation of this event. At this point, I suspect that he had an episode of vasovagal syncope. While his heart rate went from the 70s to the 60s, we do no t know what his blood pressure did during that time. The semiology of the described event sounds mor e consistent with a vasovagal episode. There was no bladder or bowel incontinence, no tongue biting. There was no seizure-like activity. He was confused only for a short time afterwards. There was no prolonged postictal period. He also has not been eating or drinking since 5 o'clock yesterday and m ay be slightly dehydrated. My plan is to get orthostatic blood pressures. We will continue to monit or him on telemetry, hydrate per primary team. Other considerations would be a seizure, again semiol ogy would be atypical, no risk factors. We will get an EEG to look for any epileptiform activity. B radyarrhythmia, again his heart rate went from 70 to 60, not too slow, but we do not know what his bl ood pressure did. He also has a history of ventricular tachycardia, although there was no change not ed on telemetry at the time of the event. We will continue to monitor on tele, Cardiology is on boar d. TIA is very unlikely given the presentation, but MRI of the brain has been ordered. I will go ah ead and order a CT angiogram of the head and neck as well to look for any evidence of stenosis, in pa rticular, vertebrobasilar disease which could make him more prone to pass out in the setting of low b lood pressure. Assuming his workup is negative, I would suspect that this is an episode of cryptogeni c orthostatic hypotension. We will continue to follow along and make further recommendations as conchita badillo. Thank you for the opportunity to participate in the care of this very nice patient. [id number]/[facility] #: [id number]
[2018-09-02] MEDS: Colchicine* 0.6 MG TAB PO SCH (20:41)
--- NOTE | 2018-09-02 23:48 | EEG ---
BLANKS DUE TO VOICE DISTORTION ON CELL PHONE CC: Dr. Ren * ELECTROENCEPHALOGRAPHY: DATE OF STUDY: 09/02/18 - ROOM #444 REFERRING PHYSICIAN: Diaz Jeff NP LOCATION: He is an inpatient in room 442. CLINICAL PROBLEM: Episode of unresponsiveness this morning at 4:30. In the hospital called. The patient was admitted with chest pain. MEDICATIONS: Include: 1. Lovenox. 2. Aspirin. 3. Trazodone. 4. Toprol. 5. . REPORT: This 16-channel EEG is remarkable for background rhythms consisting of a posterior alpha rhythm at about 9 cycles per second which is symmetric. Low- voltage beta rhythm was seen bifrontally. The patient is clinically . Activation procedures were not attempted. The patient of occipital rhythms, but does not enter sleep. There were no clinical events. There were no focal, lateralized, or epileptiform abnormalities. INTERPRETATION: Normal awake EEG. [id number]/[facility] #: [id number] [facility]
[2018-09-03] MEDS: NS 0.9% 1000 ML* 1,000 ML IV SCH ×2 (01:32→08:04)
[2018-09-03] MEDS: Ibuprofen TAB* 600 MG PO SCH ×3 (02:08→13:01)
[2018-09-03] MEDS: Enoxaparin(*) 40 MG/0.4 ML SYR SUBCUT SCH (05:41)
[2018-09-03 06:10] LABS: ABS Basophils 0 10^3/ul (0-0.2); ABS Eosinophils 0 10^3/ul (0-0.6); ABS Monocytes 0.8 10^3/ul (0-0.8); ABS Neutrophils 3.6 10^3/ul (1.5-7.7); ABS Nucleated RBC 0 10^3/ul; Eosinophil % 0.6 %; Hematocrit 37 % (42-52); Hemoglobin 12.5 g/dl (14.0-18.0); Lymphocyte % 18.6 %; Mean Corpuscular HGB Conc 34 g/dl (31-36); Mean Corpuscular Hemoglobin 33 pg (27-31); Mean Corpuscular Volume 95 fL (80-94); Mean Platelet Volume 8.1 fL (7.4-10.4); Nucleated Red Blood Cells % 0; Platelet Count 137 10^3/ul (150-450); Red Blood Count 3.85 10^6/ul (4.00-5.40); Red Cell Distribution Width 13 % (10.5-15); White Blood Count 5.5 10^3/ul (3.5-10.8)
[2018-09-03 06:26] LABS: BUN/Creatinine Ratio 23.5 (8-20); Calcium 8.1 mg/dL (8.6-10.3); EGFR Non-African American 73.8 (>60); Magnesium 1.7 mg/dL (1.9-2.7)
--- NOTE | 2018-09-03 07:29 | PN ---
Subjective Date of Service: 09/03/18 Length of Stay: 1 Days Neurology is following for the evaluation of loss of consciousness Interval History: Overnight, no new issues. Blood pressures have generally been low. No arrhythmias overnight on tele. He denies any further episodes of lightheadedness or loc. His appetite was good overnight, no N/V. He denies any headaches or vision changes. Continues to have some pleuritic chest pain with deep inspiration. Orthostatics: Positive from sitting to standing CTA: No large vessel stenosis in head/neck, no acute issues MRI: Some atrophy but no evidence of stroke EEG: WNL Review of Systems: Some pleuritic chest pain, no shortness of air, no N/V/C/D, no dysuria, no further episodes of lightheadedness. No headaches, vision loss, focal numbness , tingling or weakness Objective Active Medications: Al Hydrox/Mg Hydrox/Simethicone (Maalox Plus*) 30 ml PO Q6H PRN PRN Reason: INDIGESTION Albuterol/Ipratropium (Duoneb (Albuterol 2.5 Mg/Ipratropium 0.5 Mg)) 1 neb INH [id number] AWAKE PRN PRN Reason: sob/wheexing Aspirin (Aspirin Ec Tab*) 81 mg PO DAILY [facility] Last Admin: 09/02/18 10:06 Dose: 81 mg Atorvastatin Calcium (Lipitor*) 10 mg PO DAILY [facility] Last Admin: 09/02/18 17:20 Dose: 10 mg Colchicine (Colcrys*) 0.6 mg PO BID [facility] Last Admin: 09/02/18 20:41 Dose: 0.6 mg Enoxaparin Sodium (Lovenox(*)) 40 mg SUBCUT Q24H [facility] Last Admin: 09/03/18 05:41 Dose: 40 mg Sodium Chloride (Ns 0.9% 1000 Ml*) 1,000 mls @ 175 mls/hr IV PER RATE [facility] Last Admin: 09/03/18 01:32 Dose: 175 mls/hr Ibuprofen (Motrin Tab*) 600 mg PO Q6H [facility] Last Admin: 09/03/18 02:08 Dose: 600 mg Metoprolol Succinate (Toprol Xl Tab*) 25 mg PO DAILY [facility] Last Admin: 09/02/18 17:20 Dose: 25 mg Trazodone HCl (Desyrel Tab*) 50 mg PO BEDTIME [facility] Last Admin: 09/02/18 20:41 Dose: 50 mg Vital Signs 09/02/18 09/02/18 09/02/18 07:28 08:00 10:43 Temperature 99.0 F Pulse Rate 68 67 Respiratory 16 20 Rate Blood Pressure 136/67 (mmHg) O2 Sat by Pulse 99 100 Oximetry 09/02/18 09/02/18 09/02/18 11:33 13:36 18:15 Temperature 98.2 F 98.3 F Pulse Rate 73 70 72 Respiratory 18 16 Rate Blood Pressure 123/66 122/63 120/58 (mmHg) O2 Sat by Pulse 100 100 99 Oximetry 09/02/18 09/02/18 09/03/18 18:27 19:44 01:45 Temperature 96.6 F 97.1 F Pulse Rate 76 61 59 Respiratory 16 16 Rate Blood Pressure 100/55 104/48 90/50 (mmHg) O2 Sat by Pulse 97 97 Oximetry 09/03/18 03:19 Temperature 97.3 F Pulse Rate 57 Respiratory 16 Rate Blood Pressure 100/46 (mmHg) O2 Sat by Pulse 96 Oximetry Intake and Output Last 24 Hours 09/01/18 09/02/18 09/03/18 09/04/18 06:59 06:59 06:59 06:59 Intake Total 2880 Output Total 100 Balance 2780 Weight 163 lb 167 lb Intake: IV Fluids 2760 NS 1760 Oral 120 Output: Urine 100 Other: Estimated Void Small # Bowel Movements 0 # Voids 1 Oxygen Devices in Use Now: None Neurology Exam: General: Family at the bedside HEENT: Normocephalic/atraumatic, sclera anicteric, mucous membranes moist Neck: Supple, no bruits Chest: Clear to auscultation bilaterally Cardiovascular: Regular rate and rhythm without murmurs, rubs, gallops Abdomen: Soft, nontender/nondistended Extremities: No clubbing, cyanosis, or edema Skin: Warm and dry Neurological Findings: Awake, Alert, Oriented x3 Speech: fluent without dysarthria, repetition intact, recall intact Cranial Nerve: PEERL, EOM intact, no nystagmus or diplopia, VFF, mild left lower facial weakness (appears chronic), facial sensation intact, hearing intact to finger rub bilaterally, palate elevates symmetrically, tongue midline Motor: 5/5 throughout, proximal and distal extremities x4, tone/bulk normal Sensation: intact to LT bilaterally upper and lower extremities Deep Tendon Reflex: 1+ symmetric in the upper/lower extremities, Babinski - equivocal. Left BC could not be tested due to IV Finger to nose, rapid alternating movements intact without tremor, no dysdiadochokinesia Result Diagrams: 09/03/18 05:58 09/03/18 05:58 EKG Data: 78 year old with chest pain on deep inspiration, workup indicates pericarditis. Had an episode yesterday of loss of consciousness while standing, lasting about a minute, semiology consistent with syncope, workup negative at this point with normal EEG, no evidence for stroke or stenosis. He had positive orthostatics yesterday and blood pressures have been low. 1. Syncope: The workup is highly suggestive of a syncopal type episode. He has had low blood pressures, had positive orthostatics from sitting to standing , no evidence of arrhythmia during the event, other than some mild bradycardia, no evidence for seizures or stroke. He had been NPO since 5pm the previous day and I suspect he was somewhat dehydrated as well. --From a neurologic standpoint, workup is complete. Cardiac workup ongoing. --I told him to be very careful when changing positions and to wait for 30 seconds or so to allow his body to equilibrate. I told him to stay hydrated --Given low blood pressures, Primary team may want to adjust some of his blood pressure medications --I see no need at this point for outpatient cardiac monitoring from a neurologic perspective as he was hooked up to tele during the episode and there were no significant changes. --If he has another episode, I told him to lie down immediately to avoid passing out. --He will call my office to report any addition symptoms and we could consider additional workup at that time including cardiac monitoring and [facility] EEG. He can follow up prn with me. --I will sign off for now but remain available for any additional issues or concerns. Thank you for the opportunity to participate in his care. Assessment/Plan Assessment: 78 yo M with NSVT s/p loop, non obstructive CAD in 11/2017, BPH, ROBSON on CPAP who is presenting for atypical CP, hospital stay c/b syncopal event on 09/02 AM,
--- NOTE | 2018-09-03 07:50 | PN ---
Subjective Date of Service: 09/03/18 Interval History: HD #2 09/03/18 78 yo M with PMH NSVT s/p loop recorder who presented with CP, stay c/b syncopal event and ST changes at that time, now concerning for pericarditis. Overnight, no acute events: VS: T Max 97.3, HR 57-77, BP 90-157/50-87 97% on RA. Started Ibu and colchicine yesterday. Had extenisve neuro workup yesterday in setting of syncopal event, EEG neg, no e/o CVA, possibly all vasovagal given prodrome, orthostatics were positive. This morning: feeling much better, he reports CP has fully resolved, tolerating diet. No complaints. Seen with family, likely plan for d/c today and answered all questions. Objective Active Medications: Al Hydrox/Mg Hydrox/Simethicone (Maalox Plus*) 30 ml PO Q6H PRN PRN Reason: INDIGESTION Albuterol/Ipratropium (Duoneb (Albuterol 2.5 Mg/Ipratropium 0.5 Mg)) 1 neb INH [id number] AWAKE PRN PRN Reason: sob/wheexing Aspirin (Aspirin Ec Tab*) 81 mg PO DAILY [facility] Last Admin: 09/02/18 10:06 Dose: 81 mg Atorvastatin Calcium (Lipitor*) 10 mg PO DAILY [facility] Last Admin: 09/02/18 17:20 Dose: 10 mg Colchicine (Colcrys*) 0.6 mg PO BID [facility] Last Admin: 09/02/18 20:41 Dose: 0.6 mg Enoxaparin Sodium (Lovenox(*)) 40 mg SUBCUT Q24H [facility] Last Admin: 09/03/18 05:41 Dose: 40 mg Sodium Chloride (Ns 0.9% 1000 Ml*) 1,000 mls @ 175 mls/hr IV PER RATE [facility] Last Admin: 09/03/18 01:32 Dose: 175 mls/hr Ibuprofen (Motrin Tab*) 600 mg PO Q6H [facility] Last Admin: 09/03/18 02:08 Dose: 600 mg Metoprolol Succinate (Toprol Xl Tab*) 25 mg PO DAILY [facility] Last Admin: 09/02/18 17:20 Dose: 25 mg Trazodone HCl (Desyrel Tab*) 50 mg PO BEDTIME [facility] Last Admin: 09/02/18 20:41 Dose: 50 mg Vital Signs - 8 hr 09/03/18 09/03/18 01:45 03:19 Temperature 97.1 F 97.3 F Pulse Rate 59 57 Respiratory 16 16 Rate Blood Pressure 90/50 100/46 (mmHg) O2 Sat by Pulse 97 96 Oximetry Oxygen Devices in Use Now: None Appearance: Well appearing man in NAD Ears/Nose/Mouth/Throat: NL Teeth, Lips, Gums, Mucous Membranes Moist Neck: NL Appearance and Movements; NL JVP Respiratory: Symmetrical Chest Expansion and Respiratory Effort, Clear to Auscultation Cardiovascular: NL Sounds; No Murmurs; No JVD, RRR, - - no rub noted Abdominal: NL Sounds; No Tenderness; No Distention Lymphatic: No Cervical Adenopathy Extremities: No Edema Skin: No Rash or Ulcers Neurological: Alert and Oriented x 3 Result Diagrams: 09/03/18 05:58 09/03/18 05:58 Additional Lab and Data: CRP 20 Diagnostic Imaging: EEG: Neg 09/02 CTA: Normal 09/02 MRI Brain w/o: Normal 09/02 Assess/Plan/Problems-Billing Assessment: 78 yo M with hx of NSVT s/p loop recorder who presented with pleuretic CP, initial EKG and trop unremarkable, hospital course c/b vasovagal event that afterwards EKG showed diffuse MA depressions c/w pericarditis. - Patient Problems (1) Chest pain Current Visit: Yes Status: Acute Code(s): R07.9 - CHEST PAIN, UNSPECIFIED SNOMED Code(s): 15068853 Comment: R/o CAD done given no troponin elevation, MA depression seen and dx most c/w pericarditis -Echo done at [facility] WNL -ESR WNL, CRP at 20 -EKG repeat ordered -To d/c on Ibu 600 BID and colchicine BID -Cardiology consulted during event -At this time will keep pt on tele (2) Syncope Current Visit: Yes Status: Acute Code(s): R55 - SYNCOPE AND COLLAPSE SNOMED Code(s): 177703698 Comment: Acute syncopal event on the floor with sig neuro workup most c/w vasovagal event. (3) MIGUEL (acute kidney injury) Current Visit: Yes Status: Acute Code(s): N17.9 - ACUTE KIDNEY FAILURE, UNSPECIFIED SNOMED Code(s): 50399890 Comment: Resolved (4) ROBSON (obstructive sleep apnea) Current Visit: Yes Status: Acute Code(s): G47.33 - OBSTRUCTIVE SLEEP APNEA ( ADULT) (PEDIATRIC) SNOMED Code(s): 10747662 Comment: Continue home CPAP (5) NSVT (nonsustained ventricular tachycardia) Current Visit: Yes Status: Acute Code(s): I47.2 - VENTRICULAR TACHYCARDIA SNOMED Code(s): 261160775 Comment: Chronic problem seen by outpt cardiology, continue outpt Metoprolol at this time, currently at 1/2 dose (6) DVT prophylaxis Current Visit: Yes Status: Acute Code(s): KAL2994 - SNOMED Code(s): 023207110 Comment: Continue Lovenox Status and Disposition: will d/c to home
[2018-09-03] MEDS: Colchicine* 0.6 MG TAB PO SCH (08:00)
[2018-09-03] MEDS: Atorvastatin* 10 MG TAB PO SCH (08:01)
[2018-09-03] MEDS: Aspirin EC TAB* 81 MG TAB.EC PO SCH (08:01)
[2018-09-03] MEDS ORDERED: Metoprolol Succinate XL TAB* 25 MG PO SCH (09:00)
[2018-09-03 13:16] VITALS: BP 125/56
--- NOTE | 2018-09-03 13:22 | DCNOTE ---
Subjective Date of Service: 09/03/18 Interval History: Discharge Summary: Hospitalization Summary Objective Active Medications: Al Hydrox/Mg Hydrox/Simethicone (Maalox Plus*) 30 ml PO Q6H PRN PRN Reason: INDIGESTION Albuterol/Ipratropium (Duoneb (Albuterol 2.5 Mg/Ipratropium 0.5 Mg)) 1 neb INH [id number] AWAKE PRN PRN Reason: sob/wheexing Aspirin (Aspirin Ec Tab*) 81 mg PO DAILY [facility] Last Admin: 09/03/18 08:01 Dose: 81 mg Atorvastatin Calcium (Lipitor*) 10 mg PO DAILY [facility] Last Admin: 09/03/18 08:01 Dose: 10 mg Colchicine (Colcrys*) 0.6 mg PO BID [facility] Last Admin: 09/03/18 08:00 Dose: 0.6 mg Enoxaparin Sodium (Lovenox(*)) 40 mg SUBCUT Q24H [facility] Last Admin: 09/03/18 05:41 Dose: 40 mg Ibuprofen (Motrin Tab*) 600 mg PO Q6H [facility] Last Admin: 09/03/18 13:01 Dose: Not Given Metoprolol Succinate (Toprol Xl Tab*) 12.5 mg PO DAILY [facility] Last Admin: 09/03/18 08:00 Dose: 12.5 mg Trazodone HCl (Desyrel Tab*) 50 mg PO BEDTIME [facility] Last Admin: 09/02/18 20:41 Dose: 50 mg Vital Signs - 8 hr 09/03/18 09/03/18 07:45 11:49 Temperature 97.5 F 97.6 F Pulse Rate 61 55 Respiratory 20 21 Rate Blood Pressure 109/57 125/56 (mmHg) O2 Sat by Pulse 95 100 Oximetry Oxygen Devices in Use Now: None Result Diagrams: 09/03/18 05:58 09/03/18 05:58 Additional Lab and Data: CRP 20 Diagnostic Imaging: EEG: Neg 09/02 CTA: Normal 09/02 MRI Brain w/o: Normal 09/02 EKG Data: 78 year old with chest pain on deep inspiration, workup indicates pericarditis. Had an episode yesterday of loss of consciousness while standing, lasting about a minute, semiology consistent with syncope, workup negative at this point with normal EEG, no evidence for stroke or stenosis. He had positive orthostatics yesterday and blood pressures have been low. 1. Syncope: The workup is highly suggestive of a syncopal type episode. He has had low blood pressures, had positive orthostatics from sitting to standing , no evidence of arrhythmia during the event, other than some mild bradycardia, no evidence for seizures or stroke. He had been NPO since 5pm the previous day and I suspect he was somewhat dehydrated as well. --From a neurologic standpoint, workup is complete. Cardiac workup ongoing. --I told him to be very careful when changing positions and to wait for 30 seconds or so to allow his body to equilibrate. I told him to stay hydrated --Given low blood pressures, Primary team may want to adjust some of his blood pressure medications --I see no need at this point for outpatient cardiac monitoring from a neurologic perspective as he was hooked up to tele during the episode and there were no significant changes. --If he has another episode, I told him to lie down immediately to avoid passing out. --He will call my office to report any addition symptoms and we could consider additional workup at that time including cardiac monitoring and senior care EEG. He can follow up prn with me. --I will sign off for now but remain available for any additional issues or concerns. Thank you for the opportunity to participate in his care. Assess/Plan/Problems-Billing Assessment: 78 yo M with hx of NSVT s/p loop recorder who presented with pleuretic CP, initial EKG and trop unremarkable, hospital course c/b vasovagal event that afterwards EKG showed diffuse TN depressions c/w pericarditis. - Patient Problems (1) Chest pain Current Visit: Yes Status: Acute Code(s): R07.9 - CHEST PAIN, UNSPECIFIED SNOMED Code(s): 69231088 Comment: R/o CAD done given no troponin elevation, TN depression seen and dx most c/w pericarditis -Echo done at bedisde WNL -ESR WNL, CRP at 20 -EKG repeat ordered -To d/c on Ibu 600 BID and colchicine BID -Cardiology consulted during event -At this time will keep pt on tele (2) Syncope Current Visit: Yes Status: Resolved Code(s): R55 - SYNCOPE AND COLLAPSE SNOMED Code(s): 406555187 Comment: Acute syncopal event on the floor with sig neuro workup most c/w vasovagal event. (3) ROBSON (obstructive sleep apnea) Current Visit: Yes Status: Acute Code(s): G47.33 - OBSTRUCTIVE SLEEP APNEA ( ADULT) (PEDIATRIC) SNOMED Code(s): 33406013 Comment: Continue home CPAP (4) NSVT (nonsustained ventricular tachycardia) Current Visit: Yes Status: Acute Code(s): I47.2 - VENTRICULAR TACHYCARDIA SNOMED Code(s): 965235746 Comment: Chronic problem seen by outpt cardiology, continue outpt Metoprolol at this time, currently at 1/2 dose Status and Disposition: will d/c to home
--- NOTE | 2018-09-04 02:18 | DS ---
DISCHARGE SUMMARY: DATE OF ADMISSION: 09/02/18 DATE OF DISCHARGE: 09/03/18 ATTENDING PHYSICIAN: Bridget Jarvis MD. PRIMARY DIAGNOSES: 1. Pericarditis. 2. Syncope secondary to vasovagal event. SECONDARY DIAGNOSES: 1. Nonsustained ventricular tachycardia, chronic problem. 2. Obstructive sleep apnea, on CPAP. 3. Benign prostatic hypertrophy. 4. History of nonobstructive coronary artery disease from a cardiac catheterization in November 2017. MEDICATIONS AT TIME OF DISCHARGE: 1. Maalox 30 mL p.o. q. 6 hours p.r.n. 2. DuoNeb 1 neb q. 4 h. p.r.n. 3. Aspirin 81 mg p.o. daily. 4. Atorvastatin 10 mg p.o. daily. 5. Colchicine 0.6 mg p.o. b.i.d. for a total of 7 days. 6. Ibuprofen 600 mg p.o. b.i.d. for a total of 7 days. 7. Metoprolol 12.5 mg p.o. daily. 8. Metoprolol succinate 12.5 mg p.o. daily. 9. Trazodone 50 mg p.o. q.h.s. p.r.n. Medication changes: 1. Addition of colchicine 0.6 mg b.i.d. x 7 days after discharge. 2. Ibuprofen 600 mg p.o. b.i.d. 7 days after discharge. HISTORY OF PRESENT ILLNESS AND HOSPITAL COURSE: Mr. Morocho is a 78-year-old man with a history of nonsustained V-tach and nonobstructive coronary artery disease , who presented to the emergency room with chest pain that began the evening of 09/02/18. It woke him from sleep and prior to this he was otherwise in his usual state of health. He woke suddenly with chest pain that localized to the middle of his chest and it worsened with deep inspiration. There was no relieving or exacerbating factors. The pain was unchanged with exertion and the pain was unchanged with position. He did note some slight indigestion and thought there could be indigestion involved with that but because they were concerned about heart attack, he and his came to the emergency department and at the emergency department, his EKG showed normal sinus rhythm, normal axis , normal intervals, some mild left ventricular hypertrophy and T-wave inversions in lead III with no other ST changes. He had a chest x-ray that was unremarkable and he had labs done that showed an unremarkable BMP other than creatinine of 1.4 and troponin that was notable for 0.01. He had an unremarkable CBC at that time. He was admitted for chest pain for ruling out acute coronary syndrome with serial troponin. He also was noted to have an acute kidney injury on admission with mildly elevated creatinine of 1.4. His chronic problems of nonsustained ventricular tachycardia, obstructive sleep apnea, BPH were noted but not a part of this active hospitalization. On day #1 of this hospitalization, his troponins continued to be flat at 0.01 with no elevation. He was scheduled for an exercise stress test. Prior to his stress test, he had an acute event on the floor. While seeing the patient, he was standing with his when preparing to get an exercise stress test and he noted that he began feeling unwell as we were talking. While we were talking, he again started feeling dizzy. He sat down and began slurring speech slightly. He became confused and diuretic and after about 10 seconds, he became nonresponsive with a pulse. He was transferred to bed and rapid response call was announced. After about 45 seconds, he came to and answered questions appropriately. A and O x3 with stable vital signs at that time. Blood pressure 130/80, heart rate sinus in the 70s. Normal neuro exam with cranial nerves II through XII intact. Normal motor and sensation intact, with only a mild left facial droop that per family was not new. EKG was done during this event and it showed concave upward ST-segment changes in 2, 3 aVF, also slight ST concave upward segment in V5 and V6, accompanied with diffuse IA depression that would change from his prior admission EKG. A STEMI code was called to the bedside and bedside echo showed no regional wall motion abnormalities. Troponin was trended after this event, it was 0.01. After this syncopal event, 0.013 hours after the syncopal event and then 6 hours out of the event remained at 0.01. Neurology was consulted as a result of this syncopal event. Given the slurred speech and concern that this could have been a stroke, a CT head was done stat which was unremarkable. A brain MRI was ordered, which showed no evidence for acute intracranial abnormality noted, just mild atrophy which was chronic. Head CTA was also done per Neurology's recommendation, which showed no evidence of hemodynamically significant carotid stenosis. No evidence for large vessel intracranial thrombus and finally an EEG was completed by Neurology, which showed a normal awake EEG with no evidence of seizure activity. Neurology signed off and felt that this syncopal event was secondary to a vasovagal event. Cardiology also felt that his history of nonsustained ventricular tachycardia did not play into this syncopal event and that it was vasovagal and then exacerbated his underlying chest pain, which according to the EKG changes with diffuse IA depressions and ST elevations , most consistent with a diagnosis of pericarditis. He was monitored for the remainder of the day when on 09/02 and kept overnight. On 09/03, he was feeling much better, had returned to baseline. For the diagnosis of pericarditis, colchicine and ibuprofen was started the night before on 09/02 and he was chest pain-free on 09/03, and after only 3 doses of colchicine and ibuprofen respectively. On day of discharge, his vital signs were stable with blood pressure 125/56, heart rate 55, satting 100% on room air, and afebrile. His labs were notable for unremarkable CBC, BMP with sodium 141, potassium 4.0, chloride 111, carbon dioxide 24, BUN 23, and creatinine 0.98 which had come back down from the original presentation of 1.4 with only gentle fluid administration in the emergency room, and again troponin on discharge was 0.01. Of note, labs that were added on during the syncopal event, a CRP was noted to be elevated at 17.46 and ESR was at 20. No other lab abnormalities were noted in this hospitalization. On 09/03, Neurology signed off on the patient feeling that syncopal event was secondary to vasovagal and Cardiology signed off on the patient feeling that the atypical chest pain was out of troponin elevation was secondary to viral pericarditis as pain resolved with administration of non- steroidal antiinflammatory medications. He denied any further chest pain, shortness of breath, abdominal pain, nausea, vomiting, diarrhea, constipation that he was medically stable for discharge to home with his family. All questions were answered. PHYSICAL EXAMINATION: Physical exam on day of discharge was well-appearing gentleman in no acute distress. Normal HEENT with moist mucous membranes. He had clear to auscultation bilaterally chest. Normal cardiac exam with regular rate and rhythm with no JVD and no rub noted. He had a soft abdomen with normoactive bowel signs. No tenderness. No distention. No cervical adenopathy. No edema. His skin showed no rash or ulcers. Neurologically, he is alert and oriented x3. His cranial nerves II through XII are intact. His gait is normal. REVIEW OF SYSTEMS: Review of systems was done on discharge and pertinent positives and negatives were found in HPI above. All of his other systems were negative. DISCHARGE PLAN: Mr. Morocho was discharged to home with his family with the addition of nonsteroidal antiinflammatory medications for a new diagnosis of pericarditis for the next 7 days. His activity is as tolerated. His diet is heart-healthy and his medications are as above. We encouraged him to follow up with his primary care provider as well as his ged preparation teacher, Dr. Toribio, and we also counseled him to return to the emergency room if chest pain should return or if they feel that he did have another syncopal event. TIME SPENT: Approximately 60 minutes was spent on this discharge, greater than half of the time was spent [id number] with the patient discussing discharge plans and instructions. [id number]/[facility] #: [id number] [place]
== END 2018-09-03 14:05 | disposition home or self-care (01) ==
LOC: ED 02:05 → MEDTELE 04:33
PROVIDERS: ADMIT Internal Medicine; ATTEND Internal Medicine
DX: I31.9 Disease of pericardium, unspecified (principal); R55 Syncope and collapse; R07.9 Chest pain, unspecified; N17.9 Acute kidney failure, unspecified; G47.33 Obstructive sleep apnea (adult) (pediatric); I47.2 Ventricular tachycardia; N40.0 Benign prostatic hyperplasia without lower urinary tract symptoms; I25.10 Atherosclerotic heart disease of native coronary artery without angina pectoris; Z79.82 Long term (current) use of aspirin
CPT/HCPCS: 36415; 70450; 70496; 70498; 70551; 71045; 71046; 80048; 80053; 82550; 82553; 83735; 83880; 84484; 85025; 85379; 85610; 85652; 85730; 86140; 93005; 93306; 94660; 95816; 96372; 96374; 96375; 99284; A9270-GY; G0378; J1644; J1650; J2270; J2405; Q9967